=== PATIENT | female | born 1940 | race Two or more races ===

== ENCOUNTER → 2024-11-26 | Outpatient (CLI) | payer MEDICARE, BC, SELFPAY ==
--- NOTE | 2024-11-26 10:30 | XR_ITS ---
Examination: Screening digital mammography, bilateral Computer aided detection 3-D breast Tomosynthesis, bilateral Date and time of exam: November 26, 2024 0942 hours Compared to mammograms dating to July 21, 2019 Indication: Screening Technique: Nonmagnified MLO, CC views of the breasts to been obtained, reconstructed from 3-D Tomosynthesis images. R2 computer aided detection program utilized for evaluation of suspicious masses and/or abnormal calcifications. 3-D Tomosynthesis images obtained. Findings: Scattered areas of fibroglandular density Benign calcifications. No interval suspicious masses Impression: BI-RADS category II: Benign Findings. Recommend 1 year follow-up mammogram.
== END | disposition home or self-care (01) ==
LOC: CDIM 09:32
PROVIDERS: Referring Provider Specialist; Visit Provider Specialist
DX: R92.323 Mammographic fibroglandular density, bilateral breasts (principal); R92.1 Mammographic calcification found on diagnostic imaging of breast
CPT/HCPCS: 77063; 77067

== ENCOUNTER → 2025-02-09 | Outpatient (CLI) | payer MEDICARE, BC, SELFPAY ==
[2025-02-09 08:29] LABS: Basophils # (Auto) 0.0 Thou/mm3 (0.0-0.2); Basophils % (Auto) 1 % (0-2.5); Eosinophils # (Auto) 0.1 Thou/mm3 (0.0-0.5); Eosinophils % (Auto) 2 % (0-10); Hematocrit 42.6 % (36.0-46.0); Hemoglobin 14.2 g/dL (12.0-16.0); Immature Granulocytes Auto 0.01 Thou/mm3 (0.00-0.00); Lymphocytes # (Auto) 2.2 Thou/mm3 (1.0-4.8); Lymphocytes % (Auto) 40 % (10-50); Mean Corpuscular HGB Conc 33.3 g/dl (31.0-37.0); Mean Corpuscular Hemoglobin 31.0 pg (25.0-35.0); Mean Corpuscular Volume 93 fL (80-100); Monocytes # (Auto) 0.6 Thou/mm3 (0.0-0.8); Monocytes % (Auto) 10 % (0-12); Neutrophils # (Auto) 2.6 Thou/mm3 (1.8-7.7); Neutrophils % (Auto) 47 % (37-80); Nucleated Red Blood Cell # 0.00 Thou/mm3 (0.00-0.00); Nucleated Red Blood Cell % 0 /100 WBC (0); Platelet Count 226 Thou/mm3 (140-440); RDW Standard Deviation 44.1 fL (36.4-46.3); Red Blood Count 4.58 Miln/mm3 (4.00-5.20); White Blood Count 5.5 Thou/mm3 (3.6-11.0)
[2025-02-09 08:43] LABS: Parathyroid Hormone Intact 70.2 pg/ml (18.5-88.0)
[2025-02-09 08:52] LABS: Glucose Estimated Average 123 mg/dL (80-131); Hemoglobin A1C 5.9 % Hgb (4.8-6.0)
[2025-02-09 09:00] LABS: Folate 21.17 ng/mL (>5.38); Vitamin B12 406 pg/mL (211-911)
[2025-02-09 09:02] LABS: Alanine Aminotransferase 13 U/L (10-49); Albumin, Serum 4.3 gm/dL (3.4-4.8); Albumin/Globulin Ratio 2.0 (1.2-2.2); Alkaline Phosphatase 73 U/L (46-116); Anion Gap 9 (7-16); Aspartate Amino Transferase 20 U/L (0-34); BUN/Creatinine Ratio 17 Ratio (12-20); Bilirubin,Total 0.7 mg/dL (0.3-1.2); Blood Urea Nitrogen 12 mg/dL (9-23); Calcium 9.6 mg/dL (8.3-10.6); Calcium (Corrected) 9.6 mg/dL (8.5-10.1); Carbon Dioxide 28.0 mMol/L (20.0-31.0); Cardiac Risk Estimate 3.3 RATIO (3.7-5.6); Chloride 107 mMol/L (98-107); Cholesterol 179 mg/dL (132-200); Creatinine (Component) 0.7 mg/dL (0.6-1.3); Globulin 2.2 gm/dL (2.3-3.5); Glucose 98 mg/dL (74-106); HDL Cholesterol 55 mg/dL (40-60); LDL Cholesterol,Calculated 89 mg/dL (0-130); Osmolality,Calculated 286 (275-295); Potassium 4.4 mMol/L (3.4-5.1); Sodium 144 mMol/L (136-145); Thyroid Stimulating Hormone 1.17 uIU/mL (0.55-4.78); Total Protein 6.5 gm/dL (5.7-8.2); Triglycerides 176 mg/dL (30-150); eGFR > 60 See Note
[2025-02-13 06:36] LABS: Vitamin D, 25-OH, D2 <4 ng/mL; Vitamin D, 25-OH, D3 28 ng/mL; Vitamin D, 25-OH, Total 28 ng/mL (30-100)
== END | disposition home or self-care (01) ==
LOC: COPL 07:29
PROVIDERS: PCP Specialist; Referring Provider Specialist; Visit Provider Specialist
DX: I10 Essential (primary) hypertension (principal); R73.01 Impaired fasting glucose; D63.8 Anemia in other chronic diseases classified elsewhere; E83.51 Hypocalcemia
CPT/HCPCS: 36415; 80053; 80061; 82306; 82607; 82746; 83036; 83970; 84443; 85025

== ENCOUNTER → 2025-03-04 | Outpatient (CLI) | payer MEDICARE, BC, SELFPAY ==
--- NOTE | 2025-03-04 13:00 | XR_ITS ---
Imitation: Bone densitometry Date and time of exam: March 04, 2025, 1302 hours INDICATIONS: Menopause age 52 Technique: Lumbar spine and hip total bone mineralization values of an calculated. Peak reference and age match control results have been displayed. Findings: Lumbar spine total bone mineralization is 1.071 gm/cm2. This is 0.2 standard deviations above peak reference. This is 3.0 standard deviations above age-matched controls. Hip total bone mineralization is 1.034 gm/cm2 This is 0.5 standard deviations above peak reference. This is 2.7 standard deviations above age-matched controls Impression: There is normal mineralization taste on lumbar spine measurements. There is normal mineralization based on hip measurements Lumbar mineralization is unchanged compared with January 07, 2020 Hip mineralization is increased 0.9% compared with January 07, 2020
== END | disposition home or self-care (01) ==
LOC: CDIM 12:23
PROVIDERS: Referring Provider Specialist; Visit Provider Specialist
DX: Z13.820 Encounter for screening for osteoporosis (principal); M85.88 Other specified disorders of bone density and structure, other site
CPT/HCPCS: 77080